=== PATIENT | male | born 1965 | race Caucasian/White ===

== ENCOUNTER 2018-11-17 15:33 | Emergency (ER) | payer OTHER ==
[~2018-11-17] VITALS: Ht 180.3 cm; Wt 131.1 kg
[2018-11-17] MEDS ORDERED: CARVEDILOL12.5 MG (15:44)
[2018-11-17] MEDS ORDERED: LISINOPRIL10 MG (15:44)
[2018-11-17] MEDS ORDERED: METFORMIN HCL500 MG (15:45)
== END 2018-11-17 19:26 | disposition home or self-care (01) ==
LOC: EDSEX 15:33 → ER 15:33
DX: S80.02XA Contusion of left knee, initial encounter (principal); S80.01XA Contusion of right knee, initial encounter; M25.461 Effusion, right knee; W18.39XA Other fall on same level, initial encounter; Y93.89 Activity, other specified; Y92.69 Other specified industrial and construction area as the place of occurrence of the external cause; Y99.8 Other external cause status